=== PATIENT | male | born 1995 | race Caucasian/White ===

== ENCOUNTER 2019-05-09 12:48 | Emergency (ER) | payer BC ==
[~2019-05-09] VITALS: Ht 167.6 cm; Wt 70.6 kg
[2019-05-09 12:51] VITALS: BP 150/87
--- NOTE | 2019-05-09 13:11 | NUR ---
PT TO XR VIA BRENDA. 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
--- NOTE | 2019-05-09 13:27 | NUR ---
ERP WAS IN FOR RE-EVAL.
--- NOTE | 2019-05-09 13:36 | NUR ---
R ARM SLING APPLIED. D/C INSTRUCTIONS, MEDS & F/U APPT RV'WD WITH PT, HE VERBALIZES UNDERSTANDING. RX GIVEN X1. PT AMBULATED OUT OF ED WITHOUT DIFFICULTY.
== END 2019-05-09 13:40 | disposition home or self-care (01) ==
LOC: ED 13:30
DX: S43.401A Unspecified sprain of right shoulder joint, initial encounter (principal); I10 Essential (primary) hypertension; X58.XXXA Exposure to other specified factors, initial encounter; Y93.89 Activity, other specified; Y92.009 Unspecified place in unspecified non-institutional (private) residence as the place of occurrence of the external cause; Y99.8 Other external cause status
CPT/HCPCS: 99283